=== PATIENT | female | born 1990 | race Caucasian/White ===

== ENCOUNTER 2018-10-26 23:23 | Emergency (ER) | payer OTHER ==
[2018-10-26 23:48] VITALS: BMI 25.3
[2018-10-27] MEDS ORDERED: DEXAMETHASONE LIQUID 0.5 MG/5 ML PO ONE (00:06)
[2018-10-27] MEDS ORDERED: ALBUTEROL SO4 2.5/IPRATROPIUM 0.5 INH SOL 3 ML VIAL.NEB. NEB ONE ×2 (00:06→00:18)
[2018-10-27] MEDS ORDERED: DEXAMETHASONE SOD PHOSPHATE 10 MG/1 ML VIAL ONE (00:19)
--- NOTE | 2018-10-27 00:38 | PDOC ---
History of Present Illness - General Chief Complaint: Asthma Stated Complaint: ASTHMA Time Seen by Provider: 10/26/18 23:54 History Source: Patient Exam Limitations: No Limitations - History of Present Illness Initial Comments: 10/27/18 00:30 27 yo F with a hx of asthma (no hx of hospital admissions or intubations) presents to the emergency department with SOB, sore throat, and coughing that has been ongoing for 4 days. Per the patient, her mother was sick with an URI last week. The patient denies recent travels. She has albuterol and has been using it once per day for the past 4 days. No other medications used. Denies the following: fever, chills, chest pain, vomiting, abdominal pain, dysuria, hematuria, diarrhea, and hematochezia. Endorses nausea. Allergies: NKDA Social: Endorses tobacco smoking Shx: None Meds: Albuterol Past History - Past Medical History Allergies/Adverse Reactions: Allergies Allergy/AdvReac Type Severity Reaction Status Date / Time No Known Allergies Allergy Verified 10/26/18 23:45 Asthma: Yes COPD: No - Suicide/Smoking/Psychosocial Hx Smoking History: Current every day smoker Number of Cigarettes Smoked Daily: 2 Information on smoking cessation initiated: No Review of Systems - Review of Systems Able to Perform ROS?: Yes Is the patient limited [place] proficient: No Constitutional: No: Chills, Diaphoresis, Fever, Weakness HEENTM: Yes: Throat Pain, Throat Swelling. No: Eye Pain, Ear Pain, Mouth Pain Respiratory: Yes: Cough, Shortness of Breath. No: Hemoptysis Cardiac (ROS): No: Chest Pain, Lightheadedness, Palpitations, Syncope, Chest Tightness ABD/GI: No: Constipated, Diarrhea, Nausea, Poor Appetite, Poor Fluid Intake, Rectal Bleeding, Vomiting, Tarry Stools : No: Burning, Dysuria, Hematuria, Incontinence Musculoskeletal: No: Back Pain, Joint Pain, Neck Pain Integumentary: No: Dryness, Erythema, Sweating Neurological: No: Headache, Numbness, Tingling, Tremors Psychiatric: No: Change in Appetite Endocrine: No: Unexplained Weight Gain Hematologic/Lymphatic: No: Anemia *Physical Exam - Vital Signs Last Vital Signs Temp Pulse Resp BP Pulse Ox 99.5 F 106 H 22 H 123/73 98 10/26/18 23:46 10/26/18 23:46 10/26/18 23:46 10/26/18 23:46 10/26/18 23:46 - Physical Exam General Appearance: Yes: Nourished, Appropriately Dressed. No: Apparent Distress, Alcohol on Breath, Intoxicated, Obese HEENT: positive: EOMI, RADHA, Normal Voice, Symmetrical, Pharyngeal Erythema, Tonsillar Erythema, Hearing Grossly Normal. negative: Pharynx Normal, Pale Conjunctivae, Scleral Icterus (R), Scleral Icterus (L), Muffled/Hoarse voice, Tonsillar Exudate, Nasal Congestion, Rhinorrhea, Sinus Tenderness, Excessive drooling Neck: positive: Trachea midline, Supple. negative: Tender, Lymphadenopathy (R) , Lymphadenopathy (L), Tender lateral, Tender midline Respiratory/Chest: positive: Decreased Breath Sounds, Wheezing (mild lower right side). negative: Chest Tender, Lungs Clear, Normal Breath Sounds, Respiratory Distress, Accessory Muscle Use Cardiovascular: positive: Regular Rhythm, Regular Rate, S1, S2. negative: Systolic Murmur Gastrointestinal/Abdominal: positive: Normal Bowel Sounds, Flat, Soft. negative : Tender, Distended, Guarding, Rebound, Tenderness Lymphatic: negative: Adenopathy Musculoskeletal: positive: Normal Inspection. negative: CVA Tenderness, Vertebral Tenderness Extremity: positive: Normal Capillary Refill, Normal Inspection, Normal Range of Motion. negative: Tender, Swelling, Calf Tenderness Integumentary: positive: Normal Color, Dry, Warm. negative: Clammy, Diaphoresis , Ecchymosis Neurologic: positive: signal integrity engineer II-XII NML intact, Fully Oriented, Alert, Normal Mood/ Affect, Normal Response, Motor Strength 5/5. negative: EOM Palsy, Facial Droop , Numbness, Sensory Deficit ED Treatment Course - Medications Given in the ED: ED Medications Discontinued Medications Generic Name Dose Route Start Last Admin Trade Name Freq PRN Reason Stop Dose Admin Albuterol/Ipratropium 3 amp 10/27/18 00:06 10/27/18 00:07 Duoneb - NEB 10/27/18 00:07 3 amp ONCE ONE Administration Dexamethasone 10 mg 10/27/18 00:06 10/27/18 00:24 Decadron Liquid - PO 10/27/18 00:07 10 mg ONCE ONE Administration Medical Decision Making - Medical Decision Making 27 yo F with a hx of asthma (no hx of hospital admissions or intubations) presents to the emergency department with SOB, sore throat, and coughing that has been ongoing for 4 days. Initial vitals: Initial Vital Signs Temp Pulse Resp BP Pulse Ox 99.5 F 106 H 22 H 123/73 98 10/26/18 23:46 10/26/18 23:46 10/26/18 23:46 10/26/18 23:46 10/26/18 23:46 Work up: ddx: asthma exacerbation vs strep throat vs viral pharyngitis Laboratory Tests 10/27/18 00:18 Group A Strep Rapid Negative Negative for strep throat. patient received 10 mg of decadron and 3 amps of duoneb. Will reassess. 10/27/18 01:53 On reassessment patient had improvement in symptoms. no wheezing on auscultation. will discharge *DC/Admit/Observation/Transfer Diagnosis at time of Disposition: Cough, Viral pharyngitis - Discharge Dispostion Disposition: HOME Decision to Admit order: No - Referrals Referrals: [facility] [place] [facility] [Provider Group] - Patient Instructions Printed Discharge Instructions: Asthma -- Adult Additional Instructions: Please return to the emergency department if you have worsening symptoms. thank you. - Post Discharge Activity
--- NOTE | 2018-10-27 00:39 | PDOC ---
Attending Attestation - Resident Resident Name: Juan M Green - ED Attending Attestation I have performed the following: I have examined & evaluated the patient, The case was reviewed & discussed with the resident, I agree w/resident's findings & plan, Exceptions are as noted - HPI HPI: 10/27/18 00:38 27 yo female p/w persistent hacking cough - Physicial Exam PE: 10/27/18 00:39 wnwd 27 yo female head ncat oropharynx ++erythematous ,tonsilar hypertrophy,uvula midline neck supple lungs no crackles,no rales cvs tachycardia abd nontender skin warm and dry neuro axox3, ambulatory - Medical Decision Making 10/27/18 00:51 diff diag URI,strep pharyngits,viral syndrome, cough variant asthma 10/27/18 00:54 negative strep throat culture 10/27/18 01:51 pt's symptoms resolved with bronchodliators and she was d/c home
[2018-10-27 01:57] VITALS: BP 131/76; PULSE 102; TEMP 99.9
== END 2018-10-27 01:57 | disposition home or self-care (01) ==
LOC: JER 23:23
PROC: 3E0F7GC Introduction of Other Therapeutic Substance into Respiratory Tract, Via Natural or Artificial Opening (ICD-10-PCS; principal; 2018-10-26)
DX: J02.9 Acute pharyngitis, unspecified (principal); B97.89 Other viral agents as the cause of diseases classified elsewhere; J45.909 Unspecified asthma, uncomplicated
CPT/HCPCS: 84703; 87070; 87880; 94640; 99282-25

== ENCOUNTER 2019-02-13 08:08 | Emergency (ER) | payer OTHER ==
[2019-02-13 08:28] VITALS: TEMP 98; BMI 26.6
--- NOTE | 2019-02-13 09:06 | PDOC ---
History of Present Illness <Beryl Gonzalez - Last Filed: 02/13/19 09:11> - History of Present Illness Initial Comments: 02/13/19 09:04 CHIEF COMPLAINT: abd pain HISTORY OF PRESENT ILLNESS: 28 yo F with no PMH presents to ED with nausea , dizziness, weakness, headache. Patient states she was seen at [facility] yesterday and had "all the labs done and they were ok but I was dx with a L ovarian cyst." Patient was given morphine and reports she felt "really bad after" and now I feel worse, so I didn't want to go back to [facility]." She reports 2 episodes of vomiting today as well as cough, and runny nose. She denies any urinary pain, urgency, or frequency. No recent travel or sick contacts. PAST MEDICAL HISTORY: Denies past medical history FAMILY HISTORY: Denies SOCIAL HISTORY: Denies tobacco, alcohol, illicit drug use. SURGICAL HISTORY: Denies ALLERGIES: No known drug allergies REVIEW OF SYSTEMS General/Constitutional: Generalized weakness. Denies weight change. HEENT: Denies change in vision. Denies ear pain or discharge. Denies sore throat. Cardiovascular: Denies chest pain or shortness of breath. Respiratory: Cough, denies wheezing, or hemoptysis. Gastrointestinal: Epigastric pain, vomiting since yesterday. Denies rectal bleeding. Genitourinary: Denies dysuria, frequency, or change in urination. Musculoskeletal: Denies joint or muscle swelling or pain. Denies neck or back pain. Skin and breasts: Denies rash or easy bruising. Neurologic: Denies headache, vertigo, loss of consciousness, or loss of sensation. Psychiatric: Denies depression or anxiety. PHYSICAL EXAM General Appearance: Well-appearing, appropriately dressed. No apparent distress. HEENT: Rhinorrhea, swollen turbinates. EOMI, PERRLA, normal ENT inspection, normal voice, TMs normal, pharynx normal. No conjunctival pallor. No photophobia, scleral icterus. Neck: Supple. Trachea midline. No tenderness, rigidity, carotid bruit, stridor , lymphadenopathy, or thyromegaly. Respiratory/Chest: Lungs CTAB. No shortness of breath, chest tenderness, respiratory distress, accessory muscle use. No crackles, rales, rhonchi, stridor , wheezing, dullness Cardiovascular: RRR. S1, S2. No JVD, murmur, bradycardia, tachycardia. Gastrointestinal/Abdominal: Normal bowel sounds. Abdomen soft, non-distended. No tenderness or rebound tenderness. No organomegaly, pulsatile mass, guarding , hernia, hepatomegaly, splenomegaly. Musculoskeletal/Extremities: Normal inspection. FROM of all extremities, normal capillary refill. Pelvis Stable. No CVA tenderness. No tenderness to extremities, pedal edema, swelling, erythema or deformity. Integumentary: Appropriate color, dry, warm. No cyanosis, erythema, jaundice or rash Neurologic: employment director II-XII intact. Fully oriented, alert. Appropriate mood/affect. Motor strength 5/5. No appreciable EOM palsy, facial droop or sensory deficit. <Laura Lowe - Last Filed: 02/13/19 15:50> - General Chief Complaint: Pain, Acute Stated Complaint: PAIN Time Seen by Provider: 02/13/19 08:46 Past History <Beryl Gonzalez - Last Filed: 02/13/19 09:11> - Past Medical History Asthma: Yes COPD: No - Psycho Social/Smoking Cessation Hx Smoking History: Unknown if ever smoked Number of Cigarettes Smoked Daily: 2 <Laura Lowe - Last Filed: 02/13/19 15:50> - Past Medical History Allergies/Adverse Reactions: Allergies Allergy/AdvReac Type Severity Reaction Status Date / Time No Known Allergies Allergy Verified 10/26/18 23:45 Home Medications: Ambulatory Orders Benzonatate [Tessalon Pearls -] 100 mg PO TID #21 capsule 02/13/19 Ibuprofen 600 mg PO QID #30 tablet 02/13/19 Pseudoephedrine HCl [Pseudoephedrine ER] 120 mg PO BID #14 tablet.er 02/13/19 *Physical Exam - Vital Signs Last Vital Signs Temp Pulse Resp BP Pulse Ox 98 F 74 18 105/66 100 02/13/19 08:25 02/13/19 08:25 02/13/19 08:25 02/13/19 08:25 02/13/19 08:25 <Beryl Gonzalez - Last Filed: 02/13/19 09:11> - Vital Signs Last Vital Signs Temp Pulse Resp BP Pulse Ox 98 F 74 18 105/66 100 02/13/19 08:25 02/13/19 08:25 02/13/19 08:25 02/13/19 08:25 02/13/19 08:25 <Laura Lowe - Last Filed: 02/13/19 15:50> ED Treatment Course - LABORATORY CBC & Chemistry Diagram: 02/13/19 09:20 02/13/19 09:20 <Laura Lowe - Last Filed: 02/13/19 15:50> Medical Decision Making - Medical Decision Making 02/13/19 09:11 Vital Signs Temp Pulse Resp BP Pulse Ox 98 F 74 18 105/66 100 02/13/19 08:25 02/13/19 08:25 02/13/19 08:25 02/13/19 08:25 02/13/19 08:25 The patient was seen and evaluated in conjunction with midlevel provider under my direct supervision, ancillary studies were reviewed. I agree with the plan as outlined with [employer] Chrissy. HPI, workup/dispo as outlined. VS reviewed, wnl. anticipate discharge, pcp followup, return precautions <Beryl Gonzalez - Last Filed: 02/13/19 09:11> - Medical Decision Making 02/13/19 11:33 28 yo F with no PMH presents to ED with nausea, dizziness, weakness, headache. -labs -flu -labs, flu negative 02/13/19 15:49 Symptoms likely secondary to viral syndrome. Advised patient to take medication as prescribed and follow up with PCP within the next week for continued monitoring and evaluation of symptoms. Advised patient of signs and symptoms for return to ED. Patient verbalized understanding and agrees to plan. <Laura Lowe - Last Filed: 02/13/19 15:50> Discharge <Beryl Gonzalez - Last Filed: 02/13/19 09:11> - Discharge Information Problems reviewed: Yes - Admission No <Laura Lowe - Last Filed: 02/13/19 15:50> - Discharge Information Clinical Impression/Diagnosis: Viral syndrome Condition: Stable Disposition: HOME - Additional Discharge Information Prescriptions: Benzonatate [Tessalon Pearls -] 100 mg PO TID #21 capsule Ibuprofen 600 mg PO QID #30 tablet Pseudoephedrine HCl [Pseudoephedrine ER] 120 mg PO BID #14 tablet.er - Follow up/Referral Referrals: Justin Brooke MD [Staff Physician] - - Patient Discharge Instructions Patient Printed Discharge Instructions: DI for Viral Syndrome Print Language: AZERI - Post Discharge Activity Work/Back to School Note: Back to Work
[2019-02-13] MEDS ORDERED: ONDANSETRON 4 MG/2 ML VIAL IVPUSH ONE (09:07)
[2019-02-13] MEDS ORDERED: DICYCLOMINE HCL 20 MG TABLET PO ONE (09:07)
[2019-02-13] MEDS ORDERED: DICYCLOMINE HCL 10 MG CAPSULE ONE (09:12)
[2019-02-13] MEDS ORDERED: ONDANSETRON 4 MG/2 ML VIAL ONE (09:12)
[2019-02-13 09:41] LABS: BASO % 0.3 % (0-2.0); EOS % 0.6 % (0-4.5); HEMATOCRIT 40.9 % (32.4-45.2); HEMOGLOBIN 13.9 GM/dL (10.7-15.3); LYMPH % 13.1 % (8-40); MCH 31.1 pg (25.7-33.7); MCHC 33.9 g/dl (32.0-36.0); MEAN CELL VOLUME 91.6 fl (80-96); MEAN PLT VOLUME 9.3 fl (7.5-11.1); MONO % 7.8 % (3.8-10.2); NEUT % 78.2 % (42.8-82.8); PLATELET COUNT 229 K/MM3 (134-434); RBC 4.47 M/mm3 (3.60-5.2); RDW 14.5 % (11.6-15.6)
[2019-02-13 10:21] LABS: ALBUMIN 2.6 g/dl (3.4-5.0); BLOOD UREA NITROGEN 8.1 mg/dL (7-18); CALCIUM 8.5 mg/dL (8.5-10.1); CREATININE 0.8 mg/dL (0.55-1.3); POTASSIUM 3.6 mmol/L (3.5-5.1); TOT PROT 6.5 g/dl (6.4-8.2)
[2019-02-13 10:42] LABS: BILIRUBIN,TOTAL 0.3 mg/dL (0.2-1)
[2019-02-13] MEDS ORDERED: ACETAMINOPHEN 1000 MG/100 ML VIAL (NON FORMULARY) IVPB ONE (10:54)
[2019-02-13] MEDS ORDERED: ACETAMINOPHEN INJECTION 100 ML IVPB ONE (11:07)
[2019-02-13 11:16] LABS: EPI CELLS 8.8 /HPF (0-5/HPF); HYALINE CASTS 10 /lpf (0-8); PH,URINE 5.5 (5.0-8.0); URINE APPEARANCE CLEAR; URINE BACTERIA 204.2 /hpf (NEGATIVE); URINE BILIRUBIN NEGATIVE (NEGATIVE); URINE COLOR YELLOW; URINE GLUCOSE (UA) NEGATIVE (NEGATIVE); URINE KETONE TRACE (NEGATIVE); URINE LEUK ESTERASE 1+ (NEGATIVE); URINE NITRITE NEGATIVE (NEGATIVE); URINE PROTEIN NEGATIVE (NEGATIVE); URINE RBC 5 /hpf (0-4); URINE WBC 8 /hpf (0-5)
[2019-02-13 12:30] VITALS: BP 109/61; PULSE 77
== END 2019-02-13 12:30 | disposition home or self-care (01) ==
LOC: JER 08:08
PROC: 3E033NZ Introduction of Analgesics, Hypnotics, Sedatives into Peripheral Vein, Percutaneous Approach (ICD-10-PCS; principal; 2019-02-13)
PROC: 3E033GC Introduction of Other Therapeutic Substance into Peripheral Vein, Percutaneous Approach (ICD-10-PCS; 2019-02-13)
DX: B34.9 Viral infection, unspecified (principal)
CPT/HCPCS: 36415; 80053; 81003; 83690; 84703; 85025; 87086; 87804; 99282-25; J0131